=== PATIENT | female | born 1990 | race Caucasian/White ===

== ENCOUNTER 2017-03-19 18:43 | Emergency (ER) | payer SELFPAY ==
[~2017-03-19] VITALS: Ht 162.6 cm; Wt 106.0 kg
[2017-03-19 18:45] VITALS: BP 130/88
== END 2017-03-19 20:06 | disposition home or self-care (01) ==
LOC: ED 19:33
DX: R22.9 Localized swelling, mass and lump, unspecified (principal)
CPT/HCPCS: 99284

== ENCOUNTER 2019-04-12 04:25 | Emergency (ER) | payer SELFPAY ==
[~2019-04-12] VITALS: Ht 162.6 cm; Wt 119.5 kg
[2019-04-12] MEDS ORDERED: METHOCARBAMOL 750 MG TABLET ONE (04:41)
[2019-04-12] MEDS ORDERED: KETOROLAC 30 MG/1 ML ONE (04:42)
--- NOTE | 2019-04-12 04:46 | NUR ---
PT MEDICATED PER DEC. PT KINDLY DECLINED TORADOL. PT AND SPOUSE DENY FURTHER NEEDS AT THIS TIME.
[2019-04-12] MEDS ORDERED: KETOROLAC 30 MG/1 ML IM ONE (05:00)
[2019-04-12] MEDS ORDERED: METHOCARBAMOL 750 MG TABLET PO ONE (05:00)
[2019-04-12 05:17] VITALS: BP 129/74
== END 2019-04-12 05:23 | disposition home or self-care (01) ==
LOC: ED 05:09
DX: S16.1XXA Strain of muscle, fascia and tendon at neck level, initial encounter (principal); E66.9 Obesity, unspecified; X58.XXXA Exposure to other specified factors, initial encounter; Y93.89 Activity, other specified; Y92.89 Other specified places as the place of occurrence of the external cause; Y99.8 Other external cause status
CPT/HCPCS: 99283